=== PATIENT | female | born 1985 | race Caucasian/White ===

== ENCOUNTER 2023-06-09 08:35 | Emergency (ER) | payer OTHER ==
[~2023-06-09] VITALS: Ht 172.7 cm; Wt 102.0 kg
[2023-06-09] MEDS ORDERED: ZITHROMAX500 MG PO (12:01)
[2023-06-09] MEDS ORDERED: BENZONATATE200 MG PO (12:01)
[2023-06-09] MEDS ORDERED: MEDDOSEPAK PO (12:01)
[2023-06-09 12:12] VITALS: BP 127/86
== END 2023-06-09 12:13 | disposition home or self-care (01) ==
LOC: ED 08:35
DX: J45.991 Cough variant asthma (principal); Z20.822 Contact with and (suspected) exposure to COVID-19

== ENCOUNTER 2023-07-11 13:20 | Emergency (ER) | payer OTHER ==
[2023-07-11] VITALS (7 sets, daily range): BP systolic 81–118; BP diastolic 43–83
[~2023-07-11] VITALS: Ht 165.1 cm; Wt 89.8 kg
[~2023-07-11 13:20] MED LIST: BENZONATATE200 MG PO; MEDDOSEPAK PO; ZITHROMAX500 MG PO
[2023-07-11 14:30] LABS: BASO% 0.2 % (0-3); EOS% 2.1 % (0-8); HEMATOCRIT 40.6 % (37.0-47.0); HEMOGLOBIN 13.5 g/dl (12.0-16.0); IMMATURE GRANULOCYTES 0.2 % (0.0-5.0); LYMPH% 19.8 % (15-41); MEAN CELL VOLUME 89.8 fL CALC (80.0-100.0); MEAN CORPUSCULAR HGB 29.9 pG CALC (26.0-32.0); MEAN CORPUSCULAR HGB CONC 33.3 g/dL CAL (32.0-36.0); MONO% 7.2 % (2-13); NEUT# 3.75 thou/uL (2.00-7.15); NEUT% 70.5 % (42-76); RED BLOOD COUNT 4.52 mill/uL (4.20-5.60); RED CELL DISTRI WIDTH 12.3 % (11.5-15.5); URINE BILIRUBIN - DIPSTICK Negative (NEGATIVE); URINE BLOOD DIPSTICK Trace-intact (NEGATIVE); URINE GLUCOSE - DIPSTICK Negative (NEGATIVE); URINE KETONE Negative (NEGATIVE); URINE LEUK ESTERASE Negative (NEGATIVE); URINE NITRITE - DIPSTICK Negative (Negative); URINE PROTEIN - DIPSTICK Negative (NEG-TRACE); URINE SPECIFIC GRAVITY 1.025; URINE UROBILINOGEN - DIPSTICK 0.2 E.U./dL (0.2)
[2023-07-11 14:31] LABS: URINE COLOR Yellow
[2023-07-11 14:45] LABS: ALKALINE PHOSPHATASE 79 u/l (38-126); ANION GAP 11 (6-22 (CALC)); BILIRUBIN, TOTAL 0.3 mg/dL (0.02-1.3); BUN 15 mg/dL (7-17); BUN/CREATININE RATIO 20 (12-20 (CALC)); CARBON DIOXIDE 23 mmol/l (22-30); CHLORIDE 109 mmol/l (95-108); CREATININE 0.8 mg/dL (0.5-1.0); GFR FOR AFR.AMER. > 60 ML/MIN (>=60 (CALC)); GFR OTHER RACES > 60 ML/MIN (>=60 (CALC)); LIPASE 91 u/l (23-300); POTASSIUM 4.6 mmol/l (3.5-5.1); SGOT/AST 28 u/l (14-36); SODIUM 139 mmol/l (137-146); TOTAL PROTEIN 6.9 g/dL (6.3-8.2)
[2023-07-11] MEDS ORDERED: PROTONIX40 M2 PO (16:45)
== END 2023-07-11 17:09 | disposition home or self-care (01) ==
LOC: ED 13:20
PROVIDERS: Family Medicine
DX: R10.31 Right lower quadrant pain (principal); R10.32 Left lower quadrant pain; R10.12 Left upper quadrant pain; Z86.711 Personal history of pulmonary embolism; Z86.718 Personal history of other venous thrombosis and embolism; Z87.442 Personal history of urinary calculi
CPT/HCPCS: Q9967

== ENCOUNTER 2024-07-06 11:44 | Emergency (ER) | payer OTHER ==
[~2024-07-06] VITALS: Ht 165.1 cm; Wt 92.0 kg
[2024-07-06] VITALS (12 sets, daily range): BP systolic 109–133; BP diastolic 62–85
[~2024-07-06 11:44] MED LIST changes: +PROTONIX40 M2 PO
[2024-07-06] MEDS ORDERED: SODIUM CHLORIDE 0.9% 1,000 ML IV ONE (12:10)
[2024-07-06 12:51] LABS: BASO% 0.3 % (0-3); EOS% 10.3 % (0-8); HEMATOCRIT 39.5 % (37.0-47.0); HEMOGLOBIN 13.5 g/dl (12.0-16.0); IMMATURE GRANULOCYTES 0.7 % (0.0-5.0); LYMPH% 9.4 % (15-41); MEAN CELL VOLUME 86.6 fL CALC (80.0-100.0); MEAN CORPUSCULAR HGB 29.6 pG CALC (26.0-32.0); MEAN CORPUSCULAR HGB CONC 34.2 g/dL CAL (32.0-36.0); NEUT# 5.05 thou/uL (2.00-7.15); NEUT% 75.3 % (42-76); RED BLOOD COUNT 4.56 mill/uL (4.20-5.60); RED CELL DISTRI WIDTH 12.2 % (11.5-15.5)
[2024-07-06 12:58] LABS: ALBUMIN 3.8 g/dL (3.2-5.0); ALKALINE PHOSPHATASE 74 u/l (38-126); BUN 12 mg/dL (7-17); BUN/CREATININE RATIO 14 (12-20 (CALC)); CARBON DIOXIDE 25 mmol/l (22-30); CHLORIDE 102 mmol/l (95-108); CREATININE 0.8 mg/dL (0.5-1.0); ESTIMATED GFR 96 ML/MIN (>=90 (CALC)); LIPASE 47 u/l (23-300); SGOT/AST 26 u/l (14-36); SODIUM 133 mmol/l (137-146); TOTAL PROTEIN 6.9 g/dL (6.3-8.2)
[2024-07-06 13:00] LABS: URINE BLOOD DIPSTICK Negative (NEGATIVE); URINE GLUCOSE - DIPSTICK Negative (NEGATIVE); URINE KETONE Trace mg/dL (NEGATIVE); URINE NITRITE - DIPSTICK Negative (Negative); URINE PH 5.5 (4.5-8.0); URINE PROTEIN - DIPSTICK 30 mg/dL (NEG-TRACE); URINE SPECIFIC GRAVITY 1.015; URINE UROBILINOGEN - DIPSTICK 0.2 E.U./dL (0.2)
[2024-07-06] MEDS ORDERED: ALUM & MAG HYDROX-SIMETHICONE 30 ML PO ONE (13:00)
[2024-07-06] MEDS ORDERED: LIDOCAINE VISCOUS 2% 15 ML UDC PO ONE (13:00)
[2024-07-06 13:14] LABS: URINE COLOR Yellow
[2024-07-06 13:14] LABS: ANION GAP 10 (6-22 (CALC)); BILIRUBIN, TOTAL 0.7 mg/dL (0.02-1.3); POTASSIUM 3.6 mmol/l (3.5-5.1)
[2024-07-06 13:15] LABS: URINE LEUK ESTERASE Small (NEGATIVE)
[2024-07-06 13:16] LABS: URINE BACTERIA MODERATE hpf; URINE EPITHELIAL CELLS MANY EPI/hpf (0-FEW)
[2024-07-06] MEDS ORDERED: cefTRIAXone SODIUM 2 GM in SODIUM CHLORIDE 0.9% 100 ML IV ONE (13:40)
[2024-07-06] MEDS ORDERED: Pantoprazole Sodium 40 MG VIAL (Protonix) IV ONE (14:25)
[2024-07-06] MEDS ORDERED: PROTONIX40 MG PO (15:01)
== END 2024-07-06 15:28 | disposition home or self-care (01) ==
LOC: ED 11:44
PROVIDERS: Clinical Nurse Specialist Emergency
DX: K21.9 Gastro-esophageal reflux disease without esophagitis (principal); Z86.711 Personal history of pulmonary embolism; Z86.718 Personal history of other venous thrombosis and embolism; Z20.822 Contact with and (suspected) exposure to COVID-19; T47.96XA Underdosing of unspecified agents primarily affecting the gastrointestinal system, initial encounter; Z91.128 Patient's intentional underdosing of medication regimen for other reason
CPT/HCPCS: J0696; J2470; Q9967